=== PATIENT | female | born 1950 | race African-American/Black ===

== ENCOUNTER 2022-04-07 06:14 | Emergency (ER) | payer OTHER ==
[~2022-04-07] VITALS: Ht 162.6 cm; Wt 90.7 kg
== END 2022-04-07 07:38 | disposition home or self-care (01) ==
LOC: ED 06:14
DX: M79.18 Myalgia, other site (principal)
CPT/HCPCS: 96374; 96375; 99284; J1885; J2270; J2360; J2405